=== PATIENT | male | born 1950 | race Caucasian/White ===

== ENCOUNTER 2020-12-10 08:00 | Outpatient (CLI) | payer MEDICARE, OTHER ==
--- NOTE | 2020-12-10 09:17 | XRAY Report ---
PROCEDURE: Foot 3 View RT INDICATIONS: RIGHT FOOT PAIN TECHNIQUE: 3 views of the foot were acquired. COMPARISON: None. FINDINGS: Bones: No fractures or dislocations. No suspicious bony lesions. Small osseous erosions at the first metatarsal head. Soft tissues: No tibiotalar joint effusion. Achilles tendon appears normal. No tophus demonstrated . IMPRESSION: No acute fracture. Small erosions at the first metatarsal head. This could be seen in gout or other inflammatory arthrop athy. Recommend clinical correlation. Reviewed by: Xavier Adan MD on 12/10/2020 9:16 AM PDT Approved by: Xavier Adan MD on 12/10/2020 9:16 AM PDT Station ID: [id number]
== END 2020-12-10 23:59 | disposition home or self-care (01) ==
LOC: DI.S 08:00
PROVIDERS: ATTEND Physician Assistant Medical
DX: M79.671 Pain in right foot (principal); M85.871 Other specified disorders of bone density and structure, right ankle and foot